=== PATIENT | female | born 1960 | race Caucasian/White ===

== ENCOUNTER 2019-02-16 09:24 | Emergency (ER) | payer OTHER ==
[~2019-02-16] VITALS: Ht 165.1 cm; Wt 79.8 kg
[2019-02-16] MEDS ORDERED: DIVA500EC PO (09:46)
[2019-02-16] MEDS ORDERED: SERT25 PO (09:47)
[2019-02-16] MEDS ORDERED: SERT50 (09:47)
[2019-02-16] MEDS ORDERED: LEVSOD112 PO (09:47)
[2019-02-16] MEDS ORDERED: CYCL10 PO (10:26)
== END 2019-02-16 10:52 | disposition home or self-care (01) ==
LOC: ER 09:24
DX: S16.1XXA Strain of muscle, fascia and tendon at neck level, initial encounter (principal); E03.9 Hypothyroidism, unspecified; F31.9 Bipolar disorder, unspecified; Z91.030 Bee allergy status; Z88.0 Allergy status to penicillin; Z88.8 Allergy status to other drugs, medicaments and biological substances; Z88.5 Allergy status to narcotic agent; Z91.040 Latex allergy status; Z79.899 Other long term (current) drug therapy; Y09 Assault by unspecified means
CPT/HCPCS: 99284